=== PATIENT | male | born 1945 | race Caucasian/White ===

== ENCOUNTER 2019-01-27 12:24 | Inpatient (IN) | payer SELFPAY ==
[~2019-01-27] VITALS: Ht 157.5 cm; Wt 54.4 kg
--- NOTE | 2019-01-27 12:45 | NUR ---
PT BIBRA FROM THE STREETS TO ED BED 13. PER REPORT, PT IS C/O BILAT KNEE PAIN AND SWELLING S/P FALL WHILE TRYING TO GET UP FROM A LYING POSITION. PT IS KINY[place] SPEAKING DENIES ANY OTHER TRAUMA. UNKEPT, PANTS NOTED W/ DRIED FECAL STAINS. NO OTHER TRAUMA NOTED. GOWNED AND PLACED ON MONITOR. VSS. AWAITING MD LIN.
--- NOTE | 2019-01-27 14:19 | NUR ---
DR PÉREZ AT BEDSIDE FOR EVAL.
--- NOTE | 2019-01-27 14:25 | NUR ---
CEREAL CHEMIST AT BEDSIDE FOR BLOOD DRAW.
[2019-01-27 14:32] LABS: BASOPHILS # (AUTO) 0.1 /CMM (0.0-0.2); BASOPHILS % (AUTO) 0.9 % (0.0-2.0); EOSINOPHILS % (AUTO) 0.4 % (0.0-6.0); HEMATOCRIT 44 % (39-51); HEMOGLOBIN 14.8 g/dL (13.5-17.5); LYMPHOCYTES # (AUTO) 1.3 /CMM (0.8-4.8); LYMPHOCYTES % (AUTO) 15.6 % (20.0-44.0); MEAN CORPUSCULAR HGB CONC 34 g/dl (31.0-36.0); MEAN CORPUSCULAR VOLUME 109 fL (80-96); MONOCYTES # (AUTO) 0.9 /CMM (0.1-1.30); MONOCYTES % (AUTO) 10.1 % (2.0-12.0); NEUTROPHILS # (AUTO) 6.3 /CMM (1.8-8.9); PLATELET COUNT (AUTO) 217 /CMM (150-450); RED BLOOD CELL COUNT(AUTO) 4.04 MIL/uL (4.5-6.0); WHITE BLOOD COUNT (AUTO) 8.6 K/uL (4.3-11.0)
[2019-01-27 14:46] LABS: ALBUMIN 1.7 g/dL (3.4-5.0); BILIRUBIN,DIRECT 3.5 mg/dL (0.0-0.2); CREATININE 0.8 mg/dL (0.6-1.3); POTASSIUM 3.3 mmol/L (3.5-5.1); TOTAL PROTEIN, SERUM 7.1 g/dL (6.4-8.2)
[2019-01-27] MEDS ORDERED: CT SWABBABLE VALVE TRANS SET 1 EA INFUS.SET MC ONE (15:07)
[2019-01-27] MEDS ORDERED: IOHEXOL-300 100 ML VIAL IV ONE (15:07)
[2019-01-27] MEDS ORDERED: IV NS 0.9% 250 ML IV ONE (15:07)
--- NOTE | 2019-01-27 17:29 | NUR ---
CALLED FOR MS BED
--- NOTE | 2019-01-27 17:53 | NUR ---
pt resting in bed. kept comfortable. on monitor w/ stable vital. pending admission to med/surg. stable vitals.
--- NOTE | 2019-01-27 18:05 | NUR ---
RECIEVED BED 323-1
--- NOTE | 2019-01-27 18:14 | NUR ---
report given to tuan london. pt awaiting transfer to floor.
--- NOTE | 2019-01-27 19:05 | NUR ---
MS RN ADMITTING NOTES PT RECEIVED FROM ER TO UNIT VIA ALBERTO AT 1847. PT A/O X2-3 AND UKRAINIAN SPEAKING. RESPIRATIONS EVEN AND UNLABORED WITH NO S/S OF ACUTE DISTRESS OR SOB NOTED. NO COMPLAINTS OF PAIN AT THIS TIME. PT WITH RAC #20G PATENT AND INTACT. SAFETY MEASURES IN PLACE WITH BED IN LOWEST LOCKED POSITION WITH SIDE RAILS UP X2. PT REFUSES ASSESSMENT WELL PICTURES TO BE TAKEN. ORIENTED PT TO ROOM AND STAFF. CALL LIGHT WITHIN REACH. WILL CONTINUE TO MONITOR.
[2019-01-27 20:00] VITALS: BP 135/81
--- NOTE | 2019-01-27 20:20 | NUR ---
PT REFUSED, HE WAS RESTING. HE WANTS THE EXAM TO BE DONE IN THE MORNING. MELISSA/ ARSLAN WAS INFORMED
--- NOTE | 2019-01-27 20:45 | NUR ---
MS RN NOTES PT OUT OF BED AND WANTING TO LEAVE AMA. EXPLAINED TO PT SITUATION AND PT CALMED DOWN. PT DECIDING TO STAY. WILL CONTINUE TO MONITOR.
[2019-01-27] MEDS: LEVOFLOXACIN 750 MG /D5W 150ML 750 MG in PREMIX 1 EA IV SCH (20:47)
[2019-01-27 22:29] LABS: FREE PSA 0.22 ng/mL (0.00-45); PROSTATE SPECIFIC ANTIGEN SCR 4.06 ng/mL (0.00-4.00)
[2019-01-27] MEDS: METRONIDAZOLE 500MG/ NS 100ML 500 MG in PREMIX 1 EA IV SCH (23:16)
[2019-01-28] MEDS: METRONIDAZOLE 500MG/ NS 100ML 500 MG in PREMIX 1 EA IV SCH ×4 (05:50→23:55)
[2019-01-28 07:03] LABS: APPEARANCE,URINE SL CLOUDY (CLEAR); BILIRUBIN,URINE MODERATE (NEGATIVE); BLOOD, URINE NEGATIVE Ery/uL (NEGATIVE); COLOR,URINE RED (YELLOW); KETONES,URINE NEGATIVE (NEGATIVE); LEUKOCYTE ESTERASE ,URINE NEGATIVE (NEGATIVE); NITRITE, URINE POSITIVE (NEGATIVE); PROTEIN,URINE NEGATIVE (NEGATIVE); UGLUCOSE NEGATIVE (NEGATIVE)
[2019-01-28 07:15] LABS: SQUAMOUS EPITHELIAL CELL,UR Rare /HPF (None Seen)
[2019-01-28 07:16] LABS: BACTERIA,URINE Moderate /HPF (None Seen); RBC,URINE 0-2 /HPF (0-2)
--- NOTE | 2019-01-28 07:30 | NUR ---
m/s blow torch burner: initial assessment received pt in bed awake, a/ox2; moldovan speaking only with forgetfulness and disorientation to place and situation. reality orientation provided prn. no c/o pain or any discomfort. hat provided and place in toilet and informed pt that stool needed for collection and to call for assistance once specimen is collected. will continue to monitor.
--- NOTE | 2019-01-28 07:46 | NUR ---
MS RN NOTES PT IN BED ASLEEP BUT EASILY AWOKEN VERBALLY OR BY TOUCH. PT A/O X2-3 AND CZECH SPEAKING. RESPIRATIONS EVEN AND UNLABORED WITH NO S/S OF ACUTE DISTRESS OR SOB NOTED THROUGHOUT SHIFT. NO COMPLAINTS OF PAIN AT THIS TIME. PT WITH RAC #20G PATENT AND INTACT. SAFETY MEASURES IN PLACE WITH BED IN LOWEST LOCKED POSITION WITH SIDE RAILS UP X2. CALL LIGHT WITHIN REACH. WILL ENDORSE TO ONCOMING NURSE FOR SHINE.
[2019-01-28 08:00] VITALS: BP 107/72
--- NOTE | 2019-01-28 08:45 | NUR ---
m/s senior front end engineer: notes dr. grigsby here and informed md that there's no diet or admit orders on this pt with verbal order to start him on clear liquid and admit to med/surg. order caried out and acknowledged.
--- NOTE | 2019-01-28 10:10 | NUR ---
m/s simulation specialist: cindy ahn o.sly ahn done and completed.
--- NOTE | 2019-01-28 11:00 | NUR ---
m/s anvil seating press operator: notes pt taken to shower, assisted by staff.
--- NOTE | 2019-01-28 11:50 | NUR ---
Social service consult requested by Dr. De La Torre for homelessness. Pt. is a 73 year old male who was admitted to [facility] for Cholitis and Cirrhosis. CHARITO and rehabilitation caseworker Liat met with the pt. bedside. Pt. is Burundian speaking and Liat assisted in translation. Pt. is alert and oriented x 4. Pt. appears dirty and disheveled. Pt. has a bad odor. Pt is homeless and stays with is friend Mike outside of the [employer] in [place]. Pt. has no income and recycles for food. Pt. states he is ambulatory. CHARITO offered pt. half-way placement, however pt. declined. Pt. states he will go back to his friend Mike. Pt. has no family in the [place]. Pt. states he used to drink a lot of alcohol but had to stop due to his cirrhosis. Pt. last drank a miniature bottle of alcohol 2 weeks ago. Pt. will be provided with homeless half-way/ other homeless resources prior to discharge.
--- NOTE | 2019-01-28 13:00 | NUR ---
m/s livestock dealer: notes noted bathroom ground soiled with stool (small amount) and hat is contaminated with water. no loose stool noted. re-oriented by staff in belarusian for stool collection. new hat provided. instructed to call for assistance. will continue to monitor.
--- NOTE | 2019-01-28 13:30 | NUR ---
m/s trench shovel operator: notes resting comfortable in bed. instructed to call for assistance. will continue to monitor.
--- NOTE | 2019-01-28 14:30 | NUR ---
m/s monument letterer: notes resting comfortable in bed. no distress noted. call light within reach.
[2019-01-28 16:00] VITALS: BP 116/74
--- NOTE | 2019-01-28 16:18 | NUR ---
SW left homeless correction and other homeless resources along with HOmeless Patient waiver form in pt's chart to give and sign upon discharge.
--- NOTE | 2019-01-28 17:00 | NUR ---
m/s raveler: notes pt got dressed and ready to leave, stated, "someone told him to go home." reality orientation provided prn with the help of bulgarian staff translating. dinner served. instructed to call for assistance.
--- NOTE | 2019-01-28 18:34 | NUR ---
m/s slots manager: notes resting quietly in bed. no c/o pain or any discomfort. needs attended. no apparent distress noted. call light within reach.
--- NOTE | 2019-01-28 19:20 | NUR ---
m/s finish mixer: notes report given to zoraida (lita) for continuity of care.
[2019-01-28 20:00] VITALS: BP_SYST 86
[2019-01-28] MEDS: LEVOFLOXACIN 750 MG /D5W 150ML 750 MG in PREMIX 1 EA IV SCH (20:07)
[2019-01-29] MEDS: METRONIDAZOLE 500MG/ NS 100ML 500 MG in PREMIX 1 EA IV SCH ×4 (06:29→23:04)
--- NOTE | 2019-01-29 07:30 | NUR ---
M/S RN OPENING NOTES RECEIVED PT ON BED, A/O X 3 TOGOLESE SPEAKING. RESPIRATION EVEN AND NON LABORED WITH NO ACUTE RESPIRATORY DISTRESS. ABDOMEN SOFT AND NON DISTENDED WITH ACTIVE BOWEL SOUNDS, INSTRUCTED FOR STOOL NEEDED FOR EVALUATION OF C DIFF. SKIN WARM TO TOUCH AND DRY. DENIES PAIN. IV SITE AT RIGHT UPPER ARM PATENT IN FLUSHING, ON TKO. CALL LIGHT WITHIN REACH. WILL CONTINUE TO MONITOR CARE.
[2019-01-29 07:32] LABS: CALCIUM, SERUM 7.4 mg/dL (8.5-10.1); CREATININE 0.8 mg/dL (0.6-1.3); MAGNESIUM 1.4 mg/dL (1.8-2.4); POTASSIUM 3.3 mmol/L (3.5-5.1)
[2019-01-29 07:47] LABS: BASOPHILS # (AUTO) 0.1 /CMM (0.0-0.2); BASOPHILS % (AUTO) 0.7 % (0.0-2.0); EOSINOPHILS % (AUTO) 1.6 % (0.0-6.0); HEMATOCRIT 35 % (39-51); HEMOGLOBIN 12.1 g/dL (13.5-17.5); LYMPHOCYTES # (AUTO) 0.8 /CMM (0.8-4.8); LYMPHOCYTES % (AUTO) 9.3 % (20.0-44.0); MEAN CORPUSCULAR HGB CONC 34 g/dl (31.0-36.0); MEAN CORPUSCULAR VOLUME 108 fL (80-96); MONOCYTES # (AUTO) 0.5 /CMM (0.1-1.30); MONOCYTES % (AUTO) 6.5 % (2.0-12.0); NEUTROPHILS # (AUTO) 6.8 /CMM (1.8-8.9); NEUTROPHILS % (AUTO) 81.9 % (43.0-81.0); PLATELET COUNT (AUTO) 204 /CMM (150-450); RED BLOOD CELL COUNT(AUTO) 3.26 MIL/uL (4.5-6.0); WHITE BLOOD COUNT (AUTO) 8.3 K/uL (4.3-11.0)
[2019-01-29 08:00] VITALS: BP 108/71
[2019-01-29] MEDS ORDERED: POTASSIUM CHLORIDE 20 MEQ TAB.PRT.SR PO SCH (09:30)
[2019-01-29] MEDS: Magnesium 1GM/D5W 100ML PREMIX 100 ML IV SCH ×4 (09:37→14:06)
--- NOTE | 2019-01-29 10:57 | NUR ---
M/S RN NOTES STOOL COLLECTED FOR C DIFF. SENT TO LAB. NO FORM GIVEN
--- NOTE | 2019-01-29 12:41 | NUR ---
M/S RN NOTES PT SEEN BY DR. HAGER FOR POSSIBLE COLONOSCOPY STATED AFTER GI CONSULT WITH SULAIMAN BERRY. PT AWARE.
--- NOTE | 2019-01-29 14:05 | NUR ---
M/S RN NOTES PT SEEN BY DR. HILARIO. EXPLAINED COLONOSCOPY PROCEDURE TO PT WITH APPRENTICESHIP REPRESENTATIVE JYOTI NAJERA. PT AGREED FOR PROCEDURE.
[2019-01-29 16:00] VITALS: BP 120/88
--- NOTE | 2019-01-29 18:15 | NUR ---
M/S RN NOTES OBTAINED CONSENT TO PATIENT FOR ORDERED CT CHEST ABDOMEN AND PELVIS WITH OR WITHOUT CONTRAST.
--- NOTE | 2019-01-29 18:46 | NUR ---
M/S RN CLOSING NOTES PT A/O 3-4, YI AND LITTLE MALDIVIAN SPEAKING, EPISODES OF FORGETFULNESS, A POOR HISTORIAN. ASSESSED NO SOB, ROM AIR SAT OF 95%. ABD SOFT AND NON DISTENDED WITH ACTIVE BOWEL SOUNDS, URINE WITH TEA COLOR SHAWN URINE. SKIN WARM TO TOUCH AND DRY, DENIES PAIN AND DISCOMFORT. BM X 4 WITH BLACK TARRY STOOL. RIGHT UPPER ARM IV PATENT IN FLUSHING. ALL CARE ATTENDED. ENDORSED CARE TO NEXT SHIFT.
--- NOTE | 2019-01-29 19:10 | NUR ---
RN lay opening notes Received Pt from morning nurse. Pt is alert and orientedX3-4. Pt speaks Nepali and able to make needs known. Pt is resting in bed comfortably. Respiration is normal. No SOB. No nausea or vomiting. Pt denies any pain or discomfort at this time. IV sites Right Upper Arm # 22 is clean, intact, and patent, SL. Safety precautions is maintained all the time. Bed at low position, brakes locked, side rails upX3 and call light is within reach. Will continue to monitor.
[2019-01-29] MEDS: LEVOFLOXACIN 750 MG /D5W 150ML 750 MG in PREMIX 1 EA IV SCH (19:58)
[2019-01-29 20:00] VITALS: BP 104/71
[2019-01-30] MEDS: METRONIDAZOLE 500MG/ NS 100ML 500 MG in PREMIX 1 EA IV SCH ×4 (05:02→23:24)
[2019-01-30 06:48] LABS: BASOPHILS # (AUTO) 0.1 /CMM (0.0-0.2); BASOPHILS % (AUTO) 1.2 % (0.0-2.0); EOSINOPHILS % (AUTO) 2.7 % (0.0-6.0); HEMATOCRIT 36 % (39-51); HEMOGLOBIN 12.2 g/dL (13.5-17.5); LYMPHOCYTES # (AUTO) 0.7 /CMM (0.8-4.8); LYMPHOCYTES % (AUTO) 8.6 % (20.0-44.0); MEAN CORPUSCULAR HGB CONC 34 g/dl (31.0-36.0); MEAN CORPUSCULAR VOLUME 109 fL (80-96); MONOCYTES # (AUTO) 0.6 /CMM (0.1-1.30); MONOCYTES % (AUTO) 7.1 % (2.0-12.0); NEUTROPHILS # (AUTO) 6.4 /CMM (1.8-8.9); NEUTROPHILS % (AUTO) 80.4 % (43.0-81.0); PLATELET COUNT (AUTO) 211 /CMM (150-450); RED BLOOD CELL COUNT(AUTO) 3.28 MIL/uL (4.5-6.0); WHITE BLOOD COUNT (AUTO) 7.9 K/uL (4.3-11.0)
--- NOTE | 2019-01-30 07:00 | NUR ---
RN medsurg closing notes Pt is resting in bed comfortably. Pt is alert and orientedX3. Respiration is normal. No SOB. NO nausea or vomiting. Pt denies any pain or discomfort at this time. IV sites at R upper arm # 22 is clean, intact, patent and SL. IV sites at L upper arm # 18 is clean, intact, patent and SL. VS is table. Routine meds were given as ordered. Pt had BMx4 with black tarry stool. Kept Pt clean, dry and comfortable. All needs met and attended. Safety precautions is maintained. Bed at low position, brakes locked, side rails upX3 and call light is within reach. Will endorse to morning nurse for SHINE.
--- NOTE | 2019-01-30 07:22 | NUR ---
MS RN OPENING NOTE PATIENT IN BED RESTING COMFORTABLY. PATIENT BREATHING IS EVEN AND UNLABORED. PATIENT IN NO ACUTE DISTRESS. NO SOB NOTED. PATIENT STATES IN NO PAIN AT THIS TIME. PATIENT IV INTACT AND PATENT. SAFETY PRECAUTIONS IN PLACE. PATIENT BED IS LOCKED AND IN LOWEST POSITION. CALL LIGHT WITHIN REACH. WILL CONTINUE TO MONITOR.
[2019-01-30 07:24] LABS: CALCIUM, SERUM 7.3 mg/dL (8.5-10.1); CREATININE 0.7 mg/dL (0.6-1.3); MAGNESIUM 1.8 mg/dL (1.8-2.4); PHOSPHORUS 2.5 mg/dL (2.5-4.9); POTASSIUM 3.3 mmol/L (3.5-5.1)
[2019-01-30 08:00] VITALS: BP 107/97
[2019-01-30] MEDS ORDERED: POTASSIUM CHLORIDE 20 MEQ TAB.PRT.SR PO SCH (10:00)
[2019-01-30] MEDS ORDERED: OCTREOTIDE 50 MCG in IV NS 0.9% 50 ML IV ONE (14:30)
--- NOTE | 2019-01-30 14:40 | NUR ---
MS RN NOTE PER ISRAEL IYER TO STOP ORDER OF OCTREOTIDE DRIP AND IV DOSE.
[2019-01-30] MEDS ORDERED: IOHEXOL-300 100 ML VIAL IV ONE (14:53)
[2019-01-30] MEDS ORDERED: CT SWABBABLE VALVE TRANS SET 1 EA INFUS.SET MC ONE (14:53)
[2019-01-30] MEDS ORDERED: IV NS 0.9% 250 ML IV ONE (14:54)
[2019-01-30] MEDS ORDERED: OCTREOTIDE 1,250 MCG in IV NS 0.9% 247.5 ML IV PRN (15:00)
[2019-01-30 16:00] VITALS: BP 114/63
[2019-01-30] MEDS: PANTOPRAZOLE 40 MG VIAL IV SCH (17:13)
--- NOTE | 2019-01-30 18:17 | NUR ---
MS RN CLOSING NOTE PATIENT IN BED RESTING COMFORTABLY. PATIENT IN NO ACUTE DISTRESS. NO SOB NOTED. PATIENT BREATHING IS EVEN AND UNLABORED. PATIENT WITH NO SIGNS OF BLEEDING. PATIENT BOWEL MOVEMENT BLACK, BROWN TARRY STOOLS. WITH NO SIGNS OF BLEEDING NOTED. UNABLE TO GRAB PATIENT STOOL SAMPLE AT THIS TIME DUE TO PATIENT FLUSHING STOOL BEFORE COLLECTION AFTER EFFORTS TO RETRIEVE SAMPLE. PATIENT HAS NOT HAD BOWEL MOVEMENT AT THIS TIME FOR RECOLLECTION. WILL ENDORSE TO TANK ASSEMBLER FOR STOOL COLLECTION. EGD CONSENT OBTAINED WITH MANAGER HEAVY DUTY PRESENT AND FORM IN CHART. PER OLLIE EGD TO BE DONE ON 02/01/19. PATIENT BED IS LOCKED AND IN LOWEST POSITION. CALL LIGHT WITHIN REACH. PATIENT KEPT CLEAN, DRY, AND COMFORTABLE THROUGHOUT MY SHIFT. PATIENT SAFETY PRECAUTIONS IN PLACE. BED ALARM ON. WILL ENDORSE CARE TO TANK ASSEMBLER FOR SHINE.
--- NOTE | 2019-01-30 19:10 | NUR ---
RN lay opening notes Received Pt from morning nurse. Pt is alert and orientedX3. Pt speaks Thai and able to make needs known. Pt is resting in bed comfortably. Respiration is normal. No SOB. No nausea or vomiting. Pt denies any pain or discomfort at this time. IV sites Right Upper Arm # 22 is clean, intact, and patent, SL. IV sites at L upper arm # 18 is reddened. Will remove the IV. Pt refused to have new IV inserted. Explained and informed to Pt that we need to collect stool sample. Pt agree and verbalize understanding. Per AM nurse Pt will have EGD on 02/01/19. Informed consent is signed by Pt. Safety precautions is maintained all the time. Bed at low position, brakes locked, side rails upX3 and call light is within reach. bed alarm is on. Instructed to call. Will continue to monitor.
[2019-01-30] MEDS: LEVOFLOXACIN (750 MG) 750 MG TABLET PO SCH (19:50)
--- NOTE | 2019-01-30 19:50 | NUR ---
RN medsurluz maria notes Removed the IV sites on left upperarm # 18 because its reddened and bleeding. Applied cold ice pack to the sites. Pt refused to have new IV inserted. Pt tolerated activity well. Pt still have the old IV Right upper arm # 22 is clean, intact, patent and infusing well. Will continue to monitor.
[2019-01-30 19:56] VITALS: BP 113/70
[2019-01-30 20:00] VITALS: BP 113/70
[2019-01-31] MEDS: METRONIDAZOLE 500MG/ NS 100ML 500 MG in PREMIX 1 EA IV SCH ×4 (05:00→23:35)
--- NOTE | 2019-01-31 06:30 | NUR ---
RN medsurg closing notes Pt is alert and oriented X2-3. Pt speaks [place] Citizen but able to make needs known. Pt is resting in bed comfortably. Respiration is normal in room air. No SOB. No nausea or vomiting. No S/S of distress noted. VS is stable. IV sites at R upper arm is clean, intact and patent. Routine meds were given as ordered. Kept Pt clean, dry and warm. All needs met and attended. Bed at low position, brakes locked, side rails upX2 and call light is within reach. Will endorse to morning nurse for SHINE
[2019-01-31 08:00] VITALS: BP 116/65
--- NOTE | 2019-01-31 08:02 | NUR ---
M/S RN NOTES PT IS AWAKE, ALERT AND ORIENTED X 4 IN BED. DENIES ANY PAIN, NO SIGNS OF DISTRESS, NO SOB. IV SITE ON RIGHT UPPER ARM #22G SALINE LOCK, ITS CLEAN, DRY, INTACT. NO REDNESS, NO INFILTRATION. KEPT PT CLEAN, DRY AND COMFORTABLE. ALL NEEDS MET. BED IN LOW, LOCKED POSITION, 2 SIDE RAILS UP. CALL LIGHT KEPT WITHIN REACH. WILL CONTINUE TO MONITOR.
[2019-01-31] MEDS: PANTOPRAZOLE 40 MG VIAL IV SCH ×2 (08:40→17:33)
[2019-01-31 09:11] VITALS: BP 116/65
[2019-01-31] MEDS ORDERED: POTASSIUM CHLORIDE 20 MEQ TAB.PRT.SR PO ONE (11:30)
[2019-01-31 16:00] VITALS: BP 111/63
[2019-01-31] MEDS ORDERED: MAGNESIUM CITRATE 296 ML BOTTLE PO ONE (17:30)
[2019-01-31] MEDS ORDERED: PEG 3350/NA SULF,BICARB,CL/KCL 4,000 ML BOTTLE PO ONE (17:30)
[2019-01-31] MEDS ORDERED: NA PHOS,M-B/NA PHOS,DI-BA 1 EA ENEMA RC PRN (17:30)
[2019-01-31] MEDS: ENSURE CLEAR 237 ML LIQUID (MIX BERRY) PO SCH (18:05)
--- NOTE | 2019-01-31 18:25 | NUR ---
MS RN NOTES PATIENT IS AWAKE ALERT ORIENTED X 3, RESTING IN BED. SHOWS NO SIGNS OF RESPIRATORY DISTRESS, DENIES PAIN, NO SIGN OF ACUTE DISTRESS. IV SITE IN RIGHT UPPER ARM IS CLEAN, DRY, INTACT. SHOWS NO SIGNS OF REDNESS AND NO INFILTRATION. ALL NEEDS MET AND ATTENDED. SAFETY PRECAUTIONS IN PLACE. BED IN LOWEST POSITION, LOCKED, 2 SIDE RAILS UP. CALL LIGHT KEPT WITHIN REACH. WILL ENDORSE TO PLASTICS DESIGN ENGINEER NURSE.
[2019-01-31 18:35] LABS: IRON, SERUM 74 ug/dl (50-175); TOTAL IRON BINDING CAPACITY 99 ug/dl (250-450)
[2019-01-31 18:48] LABS: FERRITIN 912 ng/mL (8-388)
--- NOTE | 2019-01-31 19:20 | NUR ---
MS RN OPENING NOTES RECEIVED PATIENT FROM MORNING SHIFT, ALERT AND ORIENTED X 2. VERBALLY RESPONSIVE ESTONIAN SPEAKING AND ABLE TO FOLLOW DIRECTIONS. BREATHING REGULAR AND UNLABORED ON ROOM AIR. RIGHT UPPER ARM G22 IV LINE INTACT AND PATENT FLUSHING WELL WITH NO BLEEDING OR S/S OF INFECTION/INFILTRATION NOTED. ON CLEAR LIQUIDS DIET TOLERATING WELL WITH NO NAUSEA/VOMITING OBSERVED. BOWEL AND BLADDER CONTINENT, BRP WITH ASSIST. BED LOW AND LOCKED ON SEMI FOWLERS POSITION. CALL LIGHT AND OTHER BELONGINGS IN REACH. WILL CONTINUE TO MONITOR.
[2019-01-31 20:00] VITALS: BP 114/76
[2019-01-31] MEDS: LEVOFLOXACIN (750 MG) 750 MG TABLET PO SCH (20:21)
[2019-01-31 22:00] VITALS: BP 114/76
[2019-02-01] MEDS: METRONIDAZOLE 500MG/ NS 100ML 500 MG in PREMIX 1 EA IV SCH ×4 (05:18→23:45)
--- NOTE | 2019-02-01 06:19 | NUR ---
MS RN CLOSING NOTES PATIENT IN BED, ALERT AND ORIENTED X 2-3. VERBALLY RESPONSIVE SETSWANA SPEAKING AND ABLE TO FOLLOW DIRECTIONS. BREATHING REGULAR AND UNLABORED ON ROOM AIR. RIGHT UPPER ARM G22 IV LINE INTACT AND PATENT FLUSHING WELL WITH NO BLEEDING OR S/S OF INFECTION/INFILTRATION NOTED. NO COMPLAINTS OF PAIN/DISCOMFORT REPORTED WITHIN THE SHIFT. BED LOW AND LOCKED ON SEMI FOWLERS POSITION. CALL LIGHT AND OTHER BELONGINGS IN REACH. WILL ENDORSE TO MORNING SHIFT FOR SHINE.
[2019-02-01 07:18] LABS: CALCIUM, SERUM 7.2 mg/dL (8.5-10.1); CREATININE 0.7 mg/dL (0.6-1.3); POTASSIUM 3.6 mmol/L (3.5-5.1)
--- NOTE | 2019-02-01 07:56 | NUR ---
MS RN OPENING NOTES Received Patient asleep and resting in bed. VS stable with no acute distress. Breathing even and unlabored on room air with no respiratory distress. No signs and symptoms of pain. 22g PIV on DIOGO clean, intact and patent. Safety precautions in place. Bed locked and set to lowest position with side rails x 2 up. All needs rendered at this time. Call light within reach. Will continue to monitor.
[2019-02-01 08:00] VITALS: BP 112/80
[2019-02-01] MEDS: PANTOPRAZOLE 40 MG VIAL IV SCH ×2 (08:34→16:26)
[2019-02-01] MEDS: ENSURE CLEAR 237 ML LIQUID (MIX BERRY) PO SCH ×3 (08:34→16:26)
[2019-02-01 16:00] VITALS: BP 113/75
--- NOTE | 2019-02-01 18:41 | NUR ---
MS RN CLOSING NOTES Patient resting in bed. A/O x 2-3, Yakut speaking. VS stable with no acute distress. Breathing even and unlabored on room air with no respiratory distress. Denies pain. No signs and symptoms of pain. 22g PIV on DIOGO clean, intact, patent and flushing well. Encouraged to continue drinking GoLytely. Patient verbalized understanding. Safety precautions in place. Bed locked and set to lowest position with side rails x 2 up. All needs rendered at this time. Call light within reach. Will endorse plan of care to oncoming shift.
--- NOTE | 2019-02-01 19:05 | NUR ---
MS RN OPENING NOTES Received patient in bed, alert, oriented x 2-3, Citizen Of [place] speaking. Breathing even and unlabored, on room air, with no respiratory distress. No signs and symptoms of pain. IV access on DIOGO g#22 intact and patent. Safety measures in place. Call light within reach. Bed locked and set to lowest position with side rails x 2 up. Will continue to monitor accordingly.
[2019-02-01 20:00] VITALS: BP 114/74
--- NOTE | 2019-02-01 20:00 | NUR ---
RN NOTES PATIENT ENCOURAGED TO DRINK GOLYTELY WITH THE HELP OF JYOTI HUNTLEY ORDERING MACHINE OPERATOR. PATIENT VERBALIZED UNDERSTANDING.
[2019-02-01] MEDS: LEVOFLOXACIN (750 MG) 750 MG TABLET PO SCH (20:10)
[2019-02-01 20:21] VITALS: BP 114/74
--- NOTE | 2019-02-01 22:10 | NUR ---
RN NOTES STOOL SAMPLE FOR OCCULT BLOOD OBTAINED
[2019-02-02 00:07] LABS: OCCULT BLOOD STOOL NEGATIVE (NEGATIVE)
[2019-02-02] MEDS: METRONIDAZOLE 500MG/ NS 100ML 500 MG in PREMIX 1 EA IV SCH ×2 (05:25→12:33)
[2019-02-02 06:30] LABS: BASOPHILS # (AUTO) 0.2 /CMM (0.0-0.2); BASOPHILS % (AUTO) 2.9 % (0.0-2.0); EOSINOPHILS % (AUTO) 2.1 % (0.0-6.0); HEMATOCRIT 36 % (39-51); HEMOGLOBIN 12.3 g/dL (13.5-17.5); LYMPHOCYTES % (AUTO) 15.7 % (20.0-44.0); MEAN CORPUSCULAR HGB CONC 34 g/dl (31.0-36.0); MEAN CORPUSCULAR VOLUME 109 fL (80-96); MONOCYTES # (AUTO) 0.7 /CMM (0.1-1.30); MONOCYTES % (AUTO) 10.9 % (2.0-12.0); NEUTROPHILS # (AUTO) 4.3 /CMM (1.8-8.9); NEUTROPHILS % (AUTO) 68.4 % (43.0-81.0); PLATELET COUNT (AUTO) 226 /CMM (150-450); WHITE BLOOD COUNT (AUTO) 6.3 K/uL (4.3-11.0)
--- NOTE | 2019-02-02 06:52 | NUR ---
MS RN CLOSING NOTES Patient still sleeping in bed. Breathing even and unlabored. Not in any distress, on room air with no respiratory distress. IV access in DIOGO 22g intact, patent and flushing well. Safety precautions in place. Bed locked and set to lowest position with side rails x 2 up. All needs attended at this time. Call light within reach. Will endorse plan of care to oncoming shift.
--- NOTE | 2019-02-02 07:59 | NUR ---
MS RN OPENING NOTES Received Patient awake and resting in bed. A/O x 3, English speaking. VS stable with no acute distress. Breathing even and unlabored on room air with no respiratory distress. Denies pain. No signs and symptoms of pain. 22g PIV on DIOGO clean, intact and patent. Encouraged Patient to continue drinking GoLytely. Patient verbalized understanding. Safety precautions in place. Bed locked and set to lowest position with side rails x 2 up. All needs rendered at this time. Call light within reach. Will continue to monitor.
[2019-02-02 08:00] VITALS: BP 119/84
[2019-02-02] MEDS: ENSURE CLEAR 237 ML LIQUID (MIX BERRY) PO SCH ×2 (08:00→12:00)
[2019-02-02] MEDS: PANTOPRAZOLE 40 MG VIAL IV SCH (09:27)
--- NOTE | 2019-02-02 10:05 | NUR ---
MS RN NOTES Patient taken to OR for colonoscopy at this time. Patient in stable condition.
--- NOTE | 2019-02-02 12:12 | NUR ---
MS RN NOTES Patient returned from OR from colonoscopy at this time. Patient in stable condition. VS stable with no acute distress. Breathing even and unlabored on room air with SPO2 99% with no respiratory distress. Denies pain. Post orders noted and carried out. Will continue to monitor.
[2019-02-02 16:00] VITALS: BP 112/86
--- NOTE | 2019-02-02 16:52 | NUR ---
MS SHINGLES ROOFER NOTES Patient discharged for home at this time. Patient in stable condition. VS stable with no acute distress. Breathing even and unlabored on room air with no respiratory distress. Denies pain. No signs and symptoms of pain. Skin intact. Medication reconciliation and discharge orders reviewed and explained to Patient. Patient verbalized understanding. Homeless waiver signed by Patient. Provided prison informations to Patient. All belongings with Patient. Escorted Patient to the Lobby for safety.
== END 2019-02-02 16:35 | disposition home or self-care (01) | DRG 377 ==
LOC: ER 12:26 → MED 18:32
PROC: 0DB78ZX Excision of Stomach, Pylorus, Via Natural or Artificial Opening Endoscopic, Diagnostic (ICD-10-PCS; principal; 2019-02-02)
PROC: 0DBH8ZZ Excision of Cecum, Via Natural or Artificial Opening Endoscopic (ICD-10-PCS; principal; 2019-02-02)
PROC: 0DBH8ZX Excision of Cecum, Via Natural or Artificial Opening Endoscopic, Diagnostic (ICD-10-PCS; principal; 2019-02-02)
PROC: 0DB98ZX Excision of Duodenum, Via Natural or Artificial Opening Endoscopic, Diagnostic (ICD-10-PCS; principal; 2019-02-02)
DX: K62.5 Hemorrhage of anus and rectum (principal); E43 Unspecified severe protein-calorie malnutrition; A09 Infectious gastroenteritis and colitis, unspecified; I85.00 Esophageal varices without bleeding; J90 Pleural effusion, not elsewhere classified; K76.6 Portal hypertension; D68.9 Coagulation defect, unspecified; K27.3 Acute peptic ulcer, site unspecified, without hemorrhage or perforation; K63.5 Polyp of colon; K76.0 Fatty (change of) liver, not elsewhere classified; I86.4 Gastric varices; K40.20 Bilateral inguinal hernia, without obstruction or gangrene, not specified as recurrent; N40.0 Benign prostatic hyperplasia without lower urinary tract symptoms; M19.90 Unspecified osteoarthritis, unspecified site; Z59.0 Homelessness; E87.6 Hypokalemia; K44.9 Diaphragmatic hernia without obstruction or gangrene; K70.31 Alcoholic cirrhosis of liver with ascites; K31.9 Disease of stomach and duodenum, unspecified; K29.80 Duodenitis without bleeding; M85.80 Other specified disorders of bone density and structure, unspecified site; W18.30XA Fall on same level, unspecified, initial encounter; Y92.9 Unspecified place or not applicable
CPT/HCPCS: 36415; 71045-TC; 71270-TC; 73564-TC; 74178; 76705-TC; 80048-TC; 80076-TC; 81000-TC; 82105; 82272-TC; 82378; 82728-TC; 83540-TC; 83690-TC; 83735-TC; 84100-TC; 84153-TC; 84154-TC; 85025-TC; 85610-TC; 86301; 86850-TC; 87045-TC; 87081-TC; 87086-TC; 87186-TC; 88305-TC; 88313-TC; 89055; 97116-TC; 97530-TC; 97535-TC; A4216; C9113; G0378; J1956; J2001; J2354; J2704; J3475; J3490; J7040; J7050; Q9967